=== PATIENT | male | born 1935 | race Caucasian/White ===

== ENCOUNTER 2016-06-24 13:19 | Inpatient (IN) | payer MEDICARE, OTHER ==
--- NOTE | ~2016-06-24 | OP ---
Record Of Operation [facility] [address] [place]. [address] NAME: ELVIS CONNOLLY : 36 STATUS : ADM IN PAT#: [id number] AGE: 80 ADM/REG DATE : 06/24/16 MR#: [id number] REPORT SERV DATE: 06/28/16 DICTATED BY: YEIMI GUZMAN DATE: 06/28/16 REPORT STATUS : Draft TRANSCRIBED BY: MODL DATE: 06/28/16 DATE OF PROCEDURE: 06/26/2016 PREOPERATIVE DIAGNOSIS: Displaced right femoral neck fracture. POSTOPERATIVE DIAGNOSIS: Displaced right femoral neck fracture. PROCEDURE: Uncemented total hip arthroplasty, Tri-Lock. SIDE: Right. MOUNTER SAXOPHONES: ANESTHESIA: See chart. SIZE: See chart ESTIMATED BLOOD LOSS: About 100 mL. INDICATIONS FOR SURGERY: PROCEDURE IN DETAIL: The patient was taken to the operating room and placed supine on the table without incident. Anesthetic was induced per the anesthesiologist. A Bledsoe catheter was placed by the nurse in the standard sterile technique. The correct side for the procedure was identified by preoperative markings and matched with the consent form. All personnel in the room were in agreement regarding the procedure, patient, and side. The patient was then carefully positioned and carefully padded and prepped and draped in the normal sterile fashion. The patient received prophylactic preoperative antibiotics at the appropriate time. The preoperative x-ray was brought up on the monitor. Again, this was reviewed with the staff in the room. According with the preoperative plan, and angled, an anterolateral incision was made centered over the trochanter extending from proximal posterior to distal anterior. Electrocautery was used to maintain meticulous hemostasis. The IT band was split in line with its fibers. A Charnley retractor was placed over saline moistened laps. A standard anterolateral approach to the hip was carried out dissecting in line with the vastus medialis fibers lifting the inferior 20% of the vastus medialis, proximally the interior 20% of the gluteus medius and gluteus minimus tendons off the anterior capsule. Periosteal elevator was used to elevate soft tissue gently directly off the proximal anterior femoral bone. Appropriate retractors were carefully placed. Complete anterior capsulectomy was performed. The hip was then carefully dislocated with a combination of traction maneuver by the kindergarten assistant and scooping the ball out of the socket with a Hohmann. A femoral neck osteotomy was marked according to what had been preoperatively planned with a broach as a template. The distance for the femoral neck osteotomy was measured with a ruler. A femoral neck osteotomy was made with an oscillating saw under appropriate retraction. Meticulous hemostasis was again obtained. The leg was then brought up out of the anterior bag and Record Of Operation [facility] [address] [place]. [address] NAME: ELVIS CONNOLLY : 36 STATUS : ADM IN PAT#: [id number] AGE: 80 ADM/REG DATE : 06/24/16 MR#: [id number] REPORT SERV DATE: 06/28/16 DICTATED BY: YEIMI GUZMAN DATE: 06/28/16 REPORT STATUS : Draft TRANSCRIBED BY: DANIEL DATE: 06/28/16 positioned with the lower extremity in external rotation and slight flexion. Acetabular retractors were placed carefully palpating to be sure that they were directly on the bone. The acetabular labrum was excised with electrocautery and rongeur. Pulvinar fat was removed with a large curette and rongeur and again meticulous hemostasis was obtained. Sequential reamers were used in the acetabulum to 1 mm. less than the final size which was chosen. This was felt to give excellent interference fit. The acetabular fossa was then copiously irrigated with pulsatile lavage and actual acetabular component was placed and impacted and checked to make sure it was down snug. The overall alignment was checked. The acetabular director of first impressions was then removed. Screws were placed in the standard fashion. A drill, depth gauge and self tapping screw placement taking care not to plunge as the drill holes were carefully placed. A trial liner was then placed and attention directed back to the proximal femur. The leg was placed back into the anterior bag. The proximal femur was prepared using a box chisel following by a T-handled reamer to determine the intramedullary alignment. This was followed by sequential broaches up to the final broach. Once it was seated in the appropriate position, a Calcar reamer was used to plane the proximal femur. Trial reduction was then done with a trial prosthetic ball and neck. A straight edge was used to compare the tip of the trochanter to center of the ball relationship to what had been noted on the preoperative x-ray. Careful reduction was then done of the total hip. Palpation was done to ascertain and compare leg lengths by palpating the nonoperative leg and also by checking soft tissue tension. The stability of the hip was checked in full extension with full external rotation and in full flexion with adduction, flexion and internal rotation. The hip was then redislocated with a bone hook. The femoral trial and femoral broach were removed. The acetabulum was then prepared under appropriate retraction by removing the trial liner. A central hole eliminator was placed and tightened. The shell was irrigated out. The actual insert was placed and impacted and then checked to be sure it was down snug with a joker. The leg was again positioned in the bag. The proximal femur exposed, irrigated and the actual thermal prosthesis was taken from the sales representative wire rope and impacted. Once it was down, the trunnion was cleansed with a wet and dry lap and the prosthetic thermal head was placed and impacted and checked to be sure it was down snug. The acetabulum was irrigated and reduction was obtained. Again, we checked soft tissue tension, leg length and stability as described above. The hip was closed in a layered fashion with a 5 mm. Mersilene tape placed through a single drill hole in the proximal anterior/superior trochanter reattaching the gluteus medius and minimus fibers. The vastus lateralis, gluteus medius, and gluteus minimus were then closed in a sleeve. Drain was placed between the vastus and the IT band exiting distally anteriorly. The IT band was closed. Subcutaneous closure and skin closure were then obtained. A sterile dressing was applied. The patient was carefully positioned into a supine position and then awakened. The patient was then carefully transferred to the stretcher to be returned to the postoperative care unit without incident. COMPLICATION: None. SPECIMENS: Right femoral head. Record Of Operation [place] [id number] [facility] [place]. [address] NAME: ELVIS CONNOLLY : 37 STATUS : ADM IN [facility]#: [id number] AGE: 80 ADM/REG DATE : 06/24/16 MR#: [id number] REPORT SERV DATE: 06/28/16 DICTATED BY: YEIMI GUZMAN DATE: 06/28/16 REPORT STATUS : Draft TRANSCRIBED BY: MODFernando DATE: 06/28/16 WTB/DANIEL Rachel Guzman M.D. / [id number] CC: Surekha Abrams M.D.
--- NOTE | ~2016-06-24 | OP ---
Record Of Operation [facility] [address] [place]. [address] NAME: ELVIS CONNOLLY : 37 STATUS : ADM IN PAT#: [id number] AGE: 80 ADM/REG DATE : 06/24/16 MR#: [id number] REPORT SERV DATE: 06/26/16 DICTATED BY: DONNIE MICHEL DATE: 06/26/16 REPORT STATUS : Draft TRANSCRIBED BY: DANIEL DATE: 06/26/16 DATE OF PROCEDURE: 06/26/2016 PREOPERATIVE DIAGNOSIS: End-stage renal disease. POSTOPERATIVE DIAGNOSIS: End-stage renal disease. PROCEDURE: Right IJ PermCath. LOTTERY MANAGER: None. ANESTHESIA: MAC plus local. INDICATION: The patient is a 80-year-old with chronic kidney disease, who just came in with a hip fracture. He needs dialysis as his renal function has worsened. Thus, he was consented for PermCath placement. DESCRIPTION OF PROCEDURE: After informed consent was obtained, the patient was taken to the operating room and placed in the supine position on the operating table. Monitored anesthesia was administered. The patient's right neck and chest were prepped and draped in the usual sterile fashion. Ultrasound-guided access was obtained of the right internal jugular vein. The ultrasound image was documented on the chart. I passed a wire centrally. I made a small skin incision along the right neck and chest. I tunneled a 19-cm curved HemoSplit catheter from the right chest to the right neck. I inserted a peel-away sheath under fluoroscopy over the aforementioned wire. I inserted the catheter into the peel-away sheath under fluoroscopy and peeled away the sheath. I confirmed that the catheter was not kinked and that it aspirated and flushed well. The right neck wound was closed. The catheter was sutured in place. It was packed with saline. A sterile dressing was applied. The patient tolerated the procedure well without any intraprocedural complications noted. VIC/DANIEL Donnie Michel M.D. / [id number] CC: Surekha Abrams M.D.
--- NOTE | ~2016-06-24 | HP ---
History And Physical [address] [place]. [address] NAME: ELVIS CONNOLLY : 36 STATUS : ADM IN PAT#: [id number] AGE: 80 ADM/REG DATE : 06/24/16 MR#: [id number] REPORT SERV DATE: 06/26/16 DICTATED BY: YEIMI GUZMAN DATE: 06/25/16 REPORT STATUS : Draft TRANSCRIBED BY: MODL DATE: 06/25/16 DATE OF ADMISSION: 06/24/2016 CHIEF COMPLAINT: Right hip pain. HISTORY: A 80-year-old male, tripped over water hose yesterday, fell and broke his hip. He denies pain or injury elsewhere. ALLERGIES: NONE. MEDICATIONS: See chart. PAST MEDICAL HISTORY: Hypertension, chronic renal failure, sleep apnea, and occasional diarrhea. PAST SURGICAL HISTORY: Bilateral cataracts, colonoscopies, tonsils and adenoids, repair of aortic aneurysm in 2012, several procedures to "stop a leak." Right nephrectomy in 2013. SOCIAL HISTORY: . No cigarettes, alcohol, or illicit drug use. FAMILY HISTORY: No anesthetic complications. REVIEW OF SYSTEMS: Chronic kidney disease/renal insufficiency. PHYSICAL EXAMINATION: GENERAL: He is alert and oriented x3, in no apparent distress. HEENT: Atraumatic and normocephalic. NECK: Supple. CHEST: Symmetric and nontender. LUNGS: Per Medicine evaluation. CV: Regular. ABDOMEN: Soft. No mass. EXTREMITIES: Right lower extremity is short and externally rotated. SKIN: Intact. Compartments are supple. Thready pulses. NEURO: Sensorimotor without deficit. Moderate edema. X-RAYS: Repeat x-rays done here with intertrochanteric line intact with a displaced femoral neck fracture. ASSESSMENT: Displaced right femoral neck fracture. PLAN: Right total hip arthroplasty. Risks, benefits, etc. explained. The patient wishes to proceed. History And Physical [address] [place]. [address] NAME: ELVIS CONNOLLY : 36 STATUS : ADM IN PAT#: [id number] AGE: 80 ADM/REG DATE : 06/24/16 MR#: [id number] REPORT SERV DATE: 06/26/16 DICTATED BY: YEIMI GUZMAN DATE: 06/25/16 REPORT STATUS : Draft TRANSCRIBED BY: MODL DATE: 06/25/16 WTB/MODL Rachel Guzman M.D. / [id number] CC: Surekha Willard M.D.
--- NOTE | ~2016-06-24 | HP ---
History And Physical [address] [place]. [address] NAME: ELVIS CONNOLLY : 37 STATUS : ADM IN [facility]#: [id number] AGE: 80 ADM/REG DATE : 06/24/16 MR#: [id number] REPORT SERV DATE: 06/24/16 DICTATED BY: ARACELI DUMONT DATE: 06/24/16 REPORT STATUS : Draft TRANSCRIBED BY: MODL DATE: 06/24/16 DATE OF ADMISSION: 06/24/2016 CHIEF COMPLAINT: Hip fracture, on the right side. HISTORY OF PRESENT ILLNESS: The patient is a 80-year-old male. He has a past medical history significant for one chronic kidney disease. 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 He also has history of atrial fib, currently on Cardizem and digoxin. He presents today with right hip fracture after a nonsyncopal fall. The patient was outside, filling his bird bath, he tripped over hose, states he seemed to fall on his left side, however the right hip was fractured. He had no loss of consciousness. No head trauma. He is currently denying any other symptoms except pain in his hip. On his past medical history, he had an aneurysm repair and subsequently had loss of his right kidney. He also has had decreasing function in his left. He normally follows with Dr. Arnold. His current creatinine is 4.5 with a potassium of 6.2. He is otherwise without complaints today. PAST MEDICAL HISTORY: As covered above. PAST SURGICAL HISTORY: He had aneurysm repair and he has had multiple kidney stones in the past. CURRENT MEDICATIONS: Coumadin, vitamin B12, vitamin C, digoxin 0.25, Cartia XT 180, Protonix 40, melatonin. ALLERGIES: NO KNOWN DRUG ALLERGIES. FAMILY HISTORY: Mother had a CVA. Father in his 80s from old age. SOCIAL HISTORY: Nondrinker, nonsmoker. REVIEW OF SYSTEMS: HEENT: No headache, dizziness. No chest pain, palpitations, shortness of breath, nausea, vomiting, dysuria. His musculoskeletal exam is positive for the right hip pain. Otherwise, 10-point review of systems is negative. PHYSICAL EXAMINATION: VITAL SIGNS: Currently, pending. GENERAL: He is awake, alert, oriented, no acute distress. HEENT: Normocephalic, atraumatic. Sclerae nonicteric. NECK: Supple. HEART: Irregular rate controlled. LUNGS: Clear to auscultation anteriorly. ABDOMEN: Soft, nontender, nondistended. EXTREMITIES: 1+ edema. LAB WORK: As forwarded from [facility], sodium 138, potassium 6.2, chloride 105, CO2 16, History And Physical [address] [place]. [address] NAME: ELVIS CONNOLLY : 36 STATUS : ADM IN [facility]#: [id number] AGE: 80 ADM/REG DATE : 06/24/16 MR#: [id number] REPORT SERV DATE: 06/24/16 DICTATED BY: ARACELI DUMONT DATE: 06/24/16 REPORT STATUS : Draft TRANSCRIBED BY: MODL DATE: 06/24/16 BUN and creatinine of 52 and 4.5 with a glucose of 112. White count 6.9, H and H 10.9 and 32.3, platelets 146. Troponin is less than 0.03. INR is 2.0. Last creatinine available to me here in 12/2015 of 3.11. Right hip shows a distal femoral neck fracture. EKG shows atrial fibrillation without peaked T-waves or ST-segment changes. ASSESSMENT: He has right hip fracture post nonsyncopal fall. A 80-year-old male with chronic kidney disease and hyperkalemia today. PLAN: 1. The patient has been admitted. 2. We will consult orthopedics. 3. We will consult Nephrology. 4. He received calcium and Kayexalate prior to transfer. We will repeat kidney numbers here. 5. Reverse Coumadin. 6. Proceed with orthopedic repair when his INR is corrected and his renal function is maximized and his potassium is lower. TLF/MODL Araceli Dumont M.D. / [id number] CC: Baron Jameson M.D. Hang Gautam M.D.
--- NOTE | ~2016-06-24 | DS ---
Discharge Summary [facility] [address] [place]. [address] NAME: ELVIS CONNOLLY : 36 STATUS : DIS IN PAT#: [id number] AGE: 80 ADM/REG DATE : 06/24/16 MR#: [id number] REPORT SERV DATE: 07/04/16 DICTATED BY: TC LEE DATE: 07/03/16 REPORT STATUS : Draft TRANSCRIBED BY: MODL DATE: 07/03/16 ADMISSION DATE: 06/24/2016 DISCHARGE DATE: 07/03/2016 INDICATION FOR ADMISSION: Right hip pain with hip fracture. DISCHARGE DIAGNOSES: 1. Right hip fracture following fall, status post right total hip arthroplasty on 06/26/2016. 2. Chronic kidney disease, 5, progressing to end-stage renal disease. The patient initiated on dialysis on 06/28/2016 by right IJ PermCath. 3. Left radiocephalic AV fistula created on 07/02/[address] Michel. 4. Solitary kidney. 5. Chronic atrial fibrillation. 6. Anemia. 7. History of obstructive uropathy. 8. Hypertension. 9. Nephrolithiasis. 10.History of internal iliac aneurysm repair. 11.Obstructive sleep apnea. 12.History of DVT and pulmonary embolus. 13.Hyperlipidemia. 14.Corneal transplant remotely. 15.Chronic systolic congestive heart failure, ejection fraction 46%. 16.Chronic Coumadin therapy and inferior vena cava, Jem filter for history of DVT and pulmonary embolus. HOSPITAL COURSE: Mr. Connolly is a 80-year-old male, who is followed by Dr. Arnold for stage 4 to 5 CKD and was admitted for right hip pain. He apparently fell after tripping over a hose in his yard. He required right total hip arthroplasty on 06/26/2016. His kidney failure had worsened to the point that he was at end-stage disease and his creatinine had risen to 6.18. He was initiated on dialysis on 06/28/2016 by right IJ PermCath. Subsequently on 07/02/2016, he underwent a left forearm AV fistula. He was scheduled for rehab following stabilization and was felt stable for release on 07/03/2016. At the time of release, his creatinine was 6.2, potassium 4.5, hemoglobin was 9.7. He will be transitioned to outpatient dialysis Saturday, , Saturday at [facility]. DISCHARGE MEDICATIONS: Zebeta 5 mg at bedtime; Maximum D3 10,000 units p.o. Saturday, Saturday, Saturday; Valium 2 mg at bedtime; calcium carbonate 1000 mg p.o. with meals; docusate sodium 100 mg twice daily; Lopid 600 mg twice daily; Pravachol 20 mg at bedtime; prednisone ophthalmic solution one drop left eye twice daily; sodium bicarbonate 650 mg two tablets p.o. twice daily; torsemide 100 mg one-half tablet daily; Coumadin 2.5 mg Saturday, Saturday, Saturday; Coumadin 5 mg Saturday, Saturday, , Saturday; acetaminophen 650 mg q.4h p.r.n.; Dulcolax 15 mg p.o. p.r.n. constipation; and hydrocodone 7.5/325 one q.4h p.r.n. Discharge Summary [address] [address] NAME: ELVIS CONNOLLY : 36 STATUS : DIS IN PAT#: [id number] AGE: 80 ADM/REG DATE : 06/24/16 MR#: [id number] REPORT SERV DATE: 07/04/16 DICTATED BY: TC LEE DATE: 07/03/16 REPORT STATUS : Draft TRANSCRIBED BY: DANIEL DATE: 07/03/16 ACTIVITY: Activity will be progressed at [facility] where he is transferring. DIET: Will be renal diet, 1500 mL fluid restriction per day. FOLLOWUP: On dialysis at [facility] Saturday, , Saturday. AUGIE/DANIEL Tc Lee M.D. / [id number] CC: Surekha Abrams M.D.
--- NOTE | ~2016-06-24 | CN ---
Consultation Report [facility] [address] [place]. [address] NAME: ELVIS CONNOLLY : 36 STATUS : ADM IN PAT#: [id number] AGE: 80 ADM/REG DATE : 06/24/16 MR#: [id number] REPORT SERV DATE: 06/26/16 DICTATED BY: DONNIE MICHEL DATE: 06/26/16 REPORT STATUS : Draft TRANSCRIBED BY: MODFernando DATE: 06/26/16 DATE OF CONSULTATION: 06/25/2016 REASON FOR CONSULTATION: Evaluation for dialysis access. BRIEF HISTORY: The patient is a 80-year-old gentleman who is well known to me, who had an internal iliac artery aneurysm fixed with an endovascular technique. This was for a ruptured aneurysm. Unfortunately, he had an endoleak that was not amendable to endovascular treatment. Dr. Perez and I took him to the operating room for an open repair and encountered significant scarring and bleeding that necessitated over-sewing of his aneurysm. In this process, he developed hydronephrosis postoperatively. This was thought to be related to scarring or ligation of his ureter. He ultimately lost his kidney and his renal function has worsened. Now, he is in the hospital for a hip fracture and needs dialysis access. I was consulted for evaluation and treatment. PAST MEDICAL HISTORY: CKD, stage 4; chronic atrial fibrillation; hypertension; chronic anemia; hyperlipidemia; hyperkalemia; DVT; internal iliac artery aneurysm; obstructive sleep apnea; and DVT with PE. SURGICAL HISTORY: Includes multiple interventions for his aneurysm. He has also had a corneal transplant. SOCIAL HISTORY: He does not smoke, drink, or use any drugs. He is and his is actively involved in his care. FAMILY HISTORY: Significant for cancer and stroke. ALLERGIES: NONE. MEDICATIONS: Documented on the chart and were reviewed. REVIEW OF SYSTEMS: A complete review of systems was performed and is negative with the exception of the aforementioned findings. PHYSICAL EXAMINATION: VITAL SIGNS: Documented on the chart and were reviewed. GENERAL: The patient is awake, alert, and oriented. No apparent distress. HEAD AND NECK: Benign without any carotid bruits. HEART: Irregular rate and rhythm. LUNGS: Clear. ABDOMEN: Soft, nontender, nondistended with a nonaneurysmal aorta. EXTREMITIES: Examination of the upper extremities reveals a normal complement of pulses without any significant edema or ischemic ulcerations. He has palpable femoral, popliteal, and pedal pulses. He has no significant edema or ischemic ulcerations. Consultation Report [place] [id number] [place]. [address] NAME: ELVIS CONNOLLY : 37 STATUS : ADM IN PAT#: [id number] AGE: 80 ADM/REG DATE : 06/24/16 MR#: [id number] REPORT SERV DATE: 06/26/16 DICTATED BY: DONNIE MICHEL DATE: 06/26/16 REPORT STATUS : Draft TRANSCRIBED BY: DANIEL DATE: 06/26/16 NEUROLOGIC: Grossly nonfocal. MUSCULOSKELETAL: Significant for his right hip fracture and the tenderness around this. LABORATORY DATA: His laboratory investigations are consistent with his kidney disease. ASSESSMENT AND PLAN: It looks like this gentleman has chronic kidney disease, 4, but it is progressing to end-stage renal disease. I talked to him about the risks, benefits, and alternatives of catheter-based dialysis, arteriovenous fistulas, and arteriovenous grafts. I will obtain vein mapping to see what options he has for access. He says that his veins are pretty good and that he is right-arm dominant. We will probably put something in his left upper extremity. I will ask that they stop placing IVs or drawing blood from his left upper extremity for that reason. He will need a PermCath placement in the morning for dialysis prior to his hip surgery. We can talk about his fistula or graft afterwards. VIC/DANIEL Donnie Michel M.D. / [id number] CC: Surekha Abrams M.D.
--- NOTE | ~2016-06-24 | OP ---
Record Of Operation [facility] [address] [place]. [address] NAME: ELVIS CONNOLLY : 37 STATUS : ADM IN PAT#: [id number] AGE: 80 ADM/REG DATE : 06/24/16 MR#: [id number] REPORT SERV DATE: 07/02/16 DICTATED BY: DONNIE MICHEL DATE: 07/02/16 REPORT STATUS : Draft TRANSCRIBED BY: MODFernando DATE: 07/02/16 DATE OF PROCEDURE: 07/02/2016 PREOPERATIVE DIAGNOSIS: End-stage renal disease. POSTOPERATIVE DIAGNOSIS: End-stage renal disease PROCEDURE: Left radiocephalic fistula. SURGEON: Donnie Michel M.D. SLASHER TENDER HELPER: [employer] [place]. ANESTHESIA: Block. INDICATIONS: The patient is a gentleman, with a history of chronic kidney disease, stage IV, who came in with a hip fracture. His renal function has worsened, and I placed a PermCath for dialysis. Now, he needs long-term access. DESCRIPTION OF PROCEDURE: After informed consent was obtained, the patient was taken to the operating room, and placed in the supine position on the operating table. A block had previously been administered. The patient's left upper extremity was prepped and draped in usual sterile fashion. I began with an ultrasound examination of the left upper extremity veins and found that the cephalic vein in the forearm looked reasonable. There was a point where the cephalic vein had thrombosed from a previous IV. We made a longitudinal skin incision at this region. Cautery was used to deepen the incision. I dissected out the cephalic vein at the confluence point. This was near the area thrombosis. I dissected out the radial artery. I systemically heparinized. I ligated and divided the cephalic vein and its branch. I spatulated the end of the cephalic vein at the confluence point. I removed the thrombus. I inspected the vein and it looked relatively healthy. I flushed it and it dilated and flushed well. I controlled the radial artery after systemic heparinization. I created a longitudinal arteriotomy onto which I sewed the end of the cephalic vein. I flushed of air and debris before tying down the sutures. There was a good thrill within the fistula. I freed up the soft tissue around the fistula, so that it would rest in a proper orientation. I then washed out the wound, achieved hemostasis, and closed the wound in layers. Of note, the cephalic vein was about 3 mm in diameter. The radial artery was also 3 mm in diameter. VIC/DANIEL Donnie Michel M.D. / [id number] Record Of [address] [address] NAME: ELVIS CONNOLLY : 37 STATUS : ADM IN [facility] WITH [facility]#: [id number] AGE: 80 ADM/REG DATE : 06/24/16 MR#: [id number] REPORT SERV DATE: 07/02/16 DICTATED BY: DONNIE MICHEL DATE: 07/02/16 REPORT STATUS : Draft TRANSCRIBED BY: DANIEL DATE: 07/02/16 CC: Surekha Abrams M.D. Nathan Chamberlain, M.D.
--- NOTE | ~2016-06-24 | DS ---
Discharge Summary [facility] [address] [place]. [address] NAME: ELVIS CONNOLLY : 37 STATUS : ADM IN [facility]#: [id number] AGE: 80 ADM/REG DATE : 06/24/16 MR#: [id number] REPORT SERV DATE: 07/03/16 DICTATED BY: MIGUEL HOLLINGSWORTH DATE: 07/02/16 REPORT STATUS : Draft TRANSCRIBED BY: MODL DATE: 07/02/16 ADMISSION DATE: 06/24/2016 DISCHARGE DATE: 07/02/2016 PRINCIPAL DIAGNOSIS: Right-sided hip fracture. SECONDARY DIAGNOSES: 1. End-stage renal disease. 2. Atrial fibrillation. 3. Hypertension. 4. Sleep apnea. 5. Hyperlipidemia. HISTORY OF PRESENT ILLNESS: Please see Dr. Grajeda's H and P on 06/24/2016. HOSPITAL COURSE: Admitted with hip fracture, advanced renal disease was pre-noted and it was felt that it was time for dialysis prior to anesthesia, this was initiated with a 3-way Port A-Cath and the surgery went on without complication. He continued dialysis and physical therapy with expectation to go to [facility] by 06/29/2016; however, [facility] want to go ahead and place the permanent graft in and that was scheduled on 07/02/2016, it also went on without difficulty. Due to his dialysis schedule he did not discharge again on 07/02/2016, but arrangements were made on 07/03/2016 at [facility]. I discussed with Nephrology regarding discharge planning, they agreed to presume care and he will no longer be on the hospitalist service. Greater than 30 minutes were spent on the care of this patient, discharge planning, and discharge day. EMILY/DANIEL Miguel Hollingsworth M.D. / [id number] CC: Surekha Abrams M.D. Sachin V Phade, M.D. W. Timothy Ballard, M.D. [facility]
--- NOTE | ~2016-06-24 | CN ---
Consultation Report [facility] [address] [place]. [address] NAME: ELVIS CONNOLLY : 37 STATUS : ADM IN PAT#: [id number] AGE: 80 ADM/REG DATE : 06/24/16 MR#: [id number] REPORT SERV DATE: 06/25/16 DICTATED BY: YAW STACY DATE: 06/24/16 REPORT STATUS : Draft TRANSCRIBED BY: MODL DATE: 06/24/16 NEPHROLOGY CONSULTATION DATE OF CONSULTATION: 06/24/2016 Thank you for this consult. Chart reviewed. Patient examined. REASON FOR CONSULTATION: Acute kidney injury on chronic kidney disease stage 4. HISTORY OF PRESENT ILLNESS: Mr. Connolly is a 80-year-old male with chronic kidney disease stage 4, with severe nephrotic range proteinuria followed by Dr. Arnold in our office. He has a solitary kidney. Today, he was going out to work on his bird feeder when he tripped over a hose, he landed on the left side of his body but suffered a right femoral neck fracture. The patient said he was awake the whole time, had no loss of consciousness, had no shortness of breath or chest pain, no head trauma. He says he has been doing fine, taking his medicines, and has a good quality of life. He has recently had a corneal transplant, so his vision has greatly improved and he is back to driving again. He went to the [facility] Emergency Room after calling 911 where they diagnosed his femoral neck fracture. There, his potassium was elevated at 6.2. He was shipped to [facility] where we have been asked to see him here. His creatinine is 4.4, with a potassium of 5.5. He says he is making urine fine without dysuria or gross hematuria. He has had previous obstructive uropathy and a solitary kidney due to nephrolithiasis. I reviewed the records from [facility] with Dr. Arnold. His creatinine was 3.9 in April 2016. PAST MEDICAL HISTORY: 1. Chronic atrial fibrillation, on Coumadin. 2. Chronic kidney disease stage 4. 3. Previous right nephrectomy. 4. Hypertension. 5. Anemia of chronic kidney disease. 6. Nephrotic range proteinuria. 7. Chronic edema. 8. Obstructive uropathy with nephrolithiasis that required a ureteral stent. 9. Hyperlipidemia. 10.Recurrent hyperkalemia. 11.Corneal transplant. 12.Previous deep venous thrombosis. 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 14.Obstructive sleep apnea. 15.Metabolic acidosis. 16.Previous pulmonary embolism. SOCIAL HISTORY: Does not smoke or drink. FAMILY HISTORY: Brother had cancer. Mother had a stroke. Consultation Report [facility] [address]. [address] NAME: ELVIS CONNOLLY : 37 STATUS : ADM IN [facility]#: [id number] AGE: 80 ADM/REG DATE : 06/24/16 MR#: [id number] REPORT SERV DATE: 06/25/16 DICTATED BY: YAW STACY DATE: 06/24/16 REPORT STATUS : Draft TRANSCRIBED BY: DANIEL DATE: 06/24/16 ALLERGIES: NO KNOWN DRUG ALLERGIES. HOME MEDICATIONS: Include amlodipine 5 mg a day; vitamin C 500 mg twice a day; bisoprolol 5 mg at bedtime; vitamin D 08557 units on Saturday, Saturday, and Saturday; vitamin B12, 1000 mcg p.o. daily; Valium 2 mg at bedtime; digoxin 0.125 mg 3 times a week; iron polysaccharide 200 mg a day; gemfibrozil 600 mg twice a day; losartan 50 mg a day; pravastatin 20 mg at bedtime; prednisolone eye drops, one drop twice a day in the left eye; sodium bicarbonate 650 mg two tablets twice a day; spironolactone 50 mg a day; torsemide 50 mg a day; and warfarin 2.5 mg on Saturday, Saturday, Saturday, and 5 mg on Saturday, , Saturday, Saturday. REVIEW OF SYSTEMS: All systems reviewed and are negative except what is mentioned in the history of present illness. PHYSICAL EXAMINATION: VITAL SIGNS: Currently upon examination, afebrile, blood pressure 145/73, pulse 64, respirations 18. GENERAL: Chronically ill, in no acute distress. HEENT: Eyes: Pupils react bilaterally. No conjunctivitis. Oropharynx: Mucous membranes are moist. Good dentition. No lesions. NECK: Supple. No thyromegaly or mass. Trachea is midline. LYMPHADENOPATHY: No cervical, supraclavicular, or axillary lymphadenopathy. LUNGS: Clear to auscultation. No tachypnea. CARDIOVASCULAR: Atrial fibrillation. No rub. There is no significant JVD. GASTROINTESTINAL: Positive bowel sounds. Soft, nontender, nondistended. No hepatosplenomegaly. SKIN: There is good skin turgor. No rash. PSYCHIATRIC: Alert and oriented x3. Speech is clear. Affect is normal. NEUROLOGIC: Cranial nerves 2 through 12 intact. Sensation is intact. LABORATORY DATA: Here at [facility], sodium 145, potassium 5.5, chloride 115, bicarbonate 17, BUN 51, creatinine 4.4, glucose 104, calcium 8.9, magnesium 2.6, phosphorus 3.4, digoxin 0.6, BNP 643. Hemoglobin 11.5, hematocrit 34, INR 2.1. EKG reviewed by me shows atrial fibrillation. There are no changes of hyperkalemia per my interpretation. X-ray of the hip done at [facility] shows a right femoral neck fracture per the report by the radiologist. DISCUSSION: I had a long talk with the patient and his at bedside, explained the high risk of worsening kidney disease with repair of his right hip fracture. They agree to Vas Cath hemodialysis if needed. I think he will need a Vas Cath placed before going to the Consultation Report [address] [place]. [address] NAME: ELVIS CONNOLLY : 37 STATUS : ADM IN [facility]#: [id number] AGE: 80 ADM/REG DATE : 06/24/16 MR#: [id number] REPORT SERV DATE: 06/25/16 DICTATED BY: YAW STACY DATE: 06/24/16 REPORT STATUS : Draft TRANSCRIBED BY: MODL DATE: 06/24/16 operating room if surgery is indeed needed to fix this, which I suspect that will be the case. Orthopedic Surgery has been consulted. IMPRESSION: 1. Acute kidney injury. 2. Hyperkalemia. 3. Metabolic acidosis. 4. Nephrotic range proteinuria. 5. Hypertension. 6. Chronic atrial fibrillation, on Coumadin. 7. New right hip fracture after fall today. 8. Chronic kidney disease stage 4, with solitary kidney. PLAN AND RECOMMENDATION: 1. Avoid nephrotoxins. 2. Stop the losartan and spironolactone with hyperkalemia. 3. Check urinalysis. 4. Check renal ultrasound. 5. Give IV fluids with sodium bicarbonate. 6. Give IV Lasix to excrete the potassium. The potassium is down to 5.5. There are no EKG changes of hyperkalemia. 7. If surgery is planned to fix the right hip, then will need Vas Cath as he is high risk for worsening kidney disease and need for dialysis with surgery to fix this right hip. He and his agree and voice understanding. All questions were answered for them. TEAGAN/DANIEL Yaw Stacy M.D. / [id number] CC: Surekha Willard M.D. Rohit Gupta, M.D.
[~2016-06-24 13:19] MED LIST: ASAB PO; ATEN25 PO; C5 PO; COZ50 PO; CYANO1000T PO; DIGITEK0.125 MG PO; LOPID6 PO; LOVENOX40 SC; MULTIVITAMI1 PO; NORV5 PO; PRAVAC PO; V2 PO; VIT D 3 PO
[2016-06-24] MEDS ORDERED: COZ50 PO (16:30)
[2016-06-24] MEDS ORDERED: DEMA100 PO (16:30)
[2016-06-24] MEDS ORDERED: V2 PO (16:31)
[2016-06-24] MEDS ORDERED: CYANO1000T PO (16:31)
[2016-06-24] MEDS ORDERED: LOPID6 PO (16:31)
[2016-06-24] MEDS ORDERED: SODBICAR10 PO (16:31)
[2016-06-24] MEDS ORDERED: PREDFORTE OPH (16:32)
[2016-06-24] MEDS ORDERED: ZEBETA5 PO (16:32)
[2016-06-24] MEDS ORDERED: EZFE 200200 MG PO (16:32)
[2016-06-24] MEDS ORDERED: LAN125 PO (16:33)
[2016-06-24] MEDS ORDERED: MAXIMUM D3 PO (16:33)
[2016-06-24] MEDS ORDERED: SPIRO50 PO (16:33)
[2016-06-24] MEDS ORDERED: PRAVAC PO (16:34)
[2016-06-24] MEDS ORDERED: NORV5 PO (16:34)
[2016-06-24] MEDS ORDERED: C25 PO (16:36)
[2016-06-24] MEDS ORDERED: C5 PO (16:36)
[2016-06-24] MEDS ORDERED: VITC500 PO (16:38)
[2016-06-24 17:08] LABS: CALCIUM, SERUM 8.9 MG/DL (8.5-10.4); CHLORIDE, SERUM 115 MMOL/L (96-112); CO2 (CARBON DIOXIDE) 17 MMOL/L (24-34); GLUCOSE, SERUM 104 MG/DL (60-99); PHOSPHORUS, SERUM 3.4 MG/DL (2.5-4.5); SODIUM, SERUM 145 MMOL/L (135-148)
[2016-06-24 17:10] LABS: BUN (BLOOD UREA NITROGEN) 51 MG/DL (6-23); CREATININE 4.45 MG/DL (0.70-1.30); DIGOXIN 0.6 NG/ML (0.8-2.0); GFR AFRICAN AMERICAN 14 ML/MIN (>=60); GFR NON AFRICAN AMERICAN 12 ML/MIN (>=60); POTASSIUM, SERUM 5.5 MMOL/L (3.5-5.3)
[2016-06-24 17:29] LABS: INTERNATIONAL NORMAL RATI 2.1 UNITS (-)
[2016-06-24 17:33] LABS: PROTIME (NOT ORD) 23.3 SEC (12.0-14.5)
[2016-06-24 21:02] LABS: ASCORBIC ACID (UR NOT ORDER) 40 (NEG); BILIRUBIN, URINE NEGATIVE (NEG); KETONE, URINE NEGATIVE (NEG); LEUKOCYTE ESTERASE(NOT OR NEG (NEG); WBC (NOT ORDERED) (RFLEX) 1 (0-5)
[2016-06-25 06:19] LABS: BASOPHILS 0.4 %; BASOPHILS ABSOLUTE 0.03 10/3/uL (0.0-0.16); EOSINOPHILS 2.2 %; EOSINOPHILS ABSOLUTE 0.17 10/3/uL (0.0-0.53); HEMATOCRIT 33.1 % (40.0-51.0); HEMOGLOBIN 10.9 g/dL (13.6-17.8); IMMATURE GRANULOCYTES 0.3 %; IMMATURE GRANULOCYTES ABSOLUTE 0.02 10/3/uL (0.0-0.11); LYMPHOCYTES 22.1 %; LYMPHOCYTES ABSOLUTE 1.69 10/3/uL (0.67-4.30); MEAN CORPUS HGB CONC 32.9 g/dL (32.0-36.0); MEAN CORPUSCULAR VOLUME 100.3 fL (80-100); MEAN PLATELET VOLUME 11.2 fL (9.2-13.0); MONOCYTES 13.6 %; MONOCYTES ABSOLUTE 1.04 10/3/uL (0.21-1.20); NEUTROPHILS 61.4 %; NEUTROPHILS ABSOLUTE 4.68 10/3/uL (2.02-8.40); PLATELET COUNT 174 10/3/uL (150-400); RBC DISTRIBUTION WIDTH 14.9 % (12.0-16.0); WHITE BLOOD CELLS 7.6 10/3/uL (4.5-10.5)
[2016-06-25 06:25] LABS: MANUAL DIFF NO %
[2016-06-25 06:32] LABS: ALBUMIN 2.9 G/DL (3.5-5.0); BUN (BLOOD UREA NITROGEN) 50 MG/DL (6-23); CALCIUM, SERUM 8.6 MG/DL (8.5-10.4); CHLORIDE, SERUM 110 MMOL/L (96-112); CO2 (CARBON DIOXIDE) 20 MMOL/L (24-34); CPK 251 U/L (0-200); CREATININE 4.15 MG/DL (0.70-1.30); GFR AFRICAN AMERICAN 15 ML/MIN (>=60); GFR NON AFRICAN AMERICAN 13 ML/MIN (>=60); GLUCOSE, SERUM 84 MG/DL (60-99); PHOSPHORUS, SERUM 4.3 MG/DL (2.5-4.5); POTASSIUM, SERUM 4.8 MMOL/L (3.5-5.3); SODIUM, SERUM 144 MMOL/L (135-148)
[2016-06-25 06:43] LABS: INTERNATIONAL NORMAL RATI 1.8 UNITS (-); PROTIME (NOT ORD) 20.7 SEC (12.0-14.5)
[2016-06-26 04:46] LABS: BASOPHILS 0.3 %; BASOPHILS ABSOLUTE 0.03 10/3/uL (0.0-0.16); EOSINOPHILS 3.6 %; EOSINOPHILS ABSOLUTE 0.31 10/3/uL (0.0-0.53); HEMATOCRIT 34.3 % (40.0-51.0); HEMOGLOBIN 11.4 g/dL (13.6-17.8); IMMATURE GRANULOCYTES 0.1 %; IMMATURE GRANULOCYTES ABSOLUTE 0.01 10/3/uL (0.0-0.11); LYMPHOCYTES 22.4 %; LYMPHOCYTES ABSOLUTE 1.94 10/3/uL (0.67-4.30); MANUAL DIFF NO %; MEAN CORPUS HGB CONC 33.2 g/dL (32.0-36.0); MEAN CORPUSCULAR VOLUME 99.4 fL (80-100); MEAN PLATELET VOLUME 11.2 fL (9.2-13.0); MONOCYTES 10.8 %; MONOCYTES ABSOLUTE 0.93 10/3/uL (0.21-1.20); NEUTROPHILS 62.8 %; NEUTROPHILS ABSOLUTE 5.43 10/3/uL (2.02-8.40); PLATELET COUNT 175 10/3/uL (150-400); RBC DISTRIBUTION WIDTH 14.6 % (12.0-16.0); RED CELL COUNT 3.45 10/6/uL (4.7-6.1); WHITE BLOOD CELLS 8.7 10/3/uL (4.5-10.5)
[2016-06-26 04:49] LABS: INTERNATIONAL NORMAL RATI 1.4 UNITS (-)
[2016-06-26 04:56] LABS: ALBUMIN 2.9 G/DL (3.5-5.0); BUN (BLOOD UREA NITROGEN) 51 MG/DL (6-23); CALCIUM, SERUM 8.4 MG/DL (8.5-10.4); CHLORIDE, SERUM 106 MMOL/L (96-112); CO2 (CARBON DIOXIDE) 23 MMOL/L (24-34); CREATININE 4.11 MG/DL (0.70-1.30); GFR AFRICAN AMERICAN 15 ML/MIN (>=60); GFR NON AFRICAN AMERICAN 13 ML/MIN (>=60); GLUCOSE, SERUM 79 MG/DL (60-99); PHOSPHORUS, SERUM 3.9 MG/DL (2.5-4.5); POTASSIUM, SERUM 4.2 MMOL/L (3.5-5.3); SODIUM, SERUM 143 MMOL/L (135-148)
[2016-06-26 13:43] LABS: HEPATITIS B SURFACE ANTIGEN NON-REACTIVE (NON-REACT)
[2016-06-26 14:09] LABS: HEPATITIS C ANTIBODY NON-REACTIVE (NON-REACT)
[2016-06-26 14:10] LABS: HEPATITIS B CORE AB IGM NON-REACTIVE (NON-REAC)
[2016-06-26 14:11] LABS: HIV COMBO NON-REACTIVE (NON REAC)
[2016-06-26 14:12] LABS: HEP A ANTIBODY IGM NON-REACTIVE (NON-REACT)
[2016-06-27 05:44] LABS: BASOPHILS 0.2 %; BASOPHILS ABSOLUTE 0.02 10/3/uL (0.0-0.16); EOSINOPHILS 1.5 %; EOSINOPHILS ABSOLUTE 0.15 10/3/uL (0.0-0.53); HEMATOCRIT 33.9 % (40.0-51.0); HEMOGLOBIN 11.6 g/dL (13.6-17.8); IMMATURE GRANULOCYTES 0.2 %; IMMATURE GRANULOCYTES ABSOLUTE 0.02 10/3/uL (0.0-0.11); LYMPHOCYTES 15.2 %; LYMPHOCYTES ABSOLUTE 1.49 10/3/uL (0.67-4.30); MEAN CORPUS HGB CONC 34.2 g/dL (32.0-36.0); MEAN CORPUSCULAR HEMOGLOB 33.4 pg (26.0-34.0); MEAN CORPUSCULAR VOLUME 97.7 fL (80-100); MEAN PLATELET VOLUME 11.2 fL (9.2-13.0); MONOCYTES 12.9 %; MONOCYTES ABSOLUTE 1.27 10/3/uL (0.21-1.20); NEUTROPHILS ABSOLUTE 6.86 10/3/uL (2.02-8.40); PLATELET COUNT 157 10/3/uL (150-400); RBC DISTRIBUTION WIDTH 14.4 % (12.0-16.0); RED CELL COUNT 3.47 10/6/uL (4.7-6.1); WHITE BLOOD CELLS 9.8 10/3/uL (4.5-10.5)
[2016-06-27 05:48] LABS: MANUAL DIFF NO %
[2016-06-27 05:53] LABS: ALBUMIN 2.7 G/DL (3.5-5.0); BUN (BLOOD UREA NITROGEN) 47 MG/DL (6-23); CHLORIDE, SERUM 104 MMOL/L (96-112); CO2 (CARBON DIOXIDE) 24 MMOL/L (24-34); CREATININE 4.56 MG/DL (0.70-1.30); GFR AFRICAN AMERICAN 13 ML/MIN (>=60); GFR NON AFRICAN AMERICAN 11 ML/MIN (>=60); GLUCOSE, SERUM 91 MG/DL (60-99); PHOSPHORUS, SERUM 7.3 MG/DL (2.5-4.5); POTASSIUM, SERUM 4.8 MMOL/L (3.5-5.3); SODIUM, SERUM 142 MMOL/L (135-148)
[2016-06-27 05:55] LABS: INTERNATIONAL NORMAL RATI 1.5 UNITS (-); PROTIME (NOT ORD) 17.6 SEC (12.0-14.5)
[2016-06-27 06:21] LABS: PLATELET ESTIMATE ADQ (ADEQUATE)
[2016-06-27 06:22] LABS: RBC MORPHOLOGY NORM (NORMAL)
[2016-06-28 05:54] LABS: BASOPHILS 0.1 %; BASOPHILS ABSOLUTE 0.01 10/3/uL (0.0-0.16); EOSINOPHILS 0.1 %; EOSINOPHILS ABSOLUTE 0.01 10/3/uL (0.0-0.53); HEMATOCRIT 31.5 % (40.0-51.0); HEMOGLOBIN 10.7 g/dL (13.6-17.8); IMMATURE GRANULOCYTES 0.2 %; IMMATURE GRANULOCYTES ABSOLUTE 0.02 10/3/uL (0.0-0.11); LYMPHOCYTES ABSOLUTE 1.13 10/3/uL (0.67-4.30); MEAN CORPUSCULAR HEMOGLOB 33.1 pg (26.0-34.0); MEAN CORPUSCULAR VOLUME 97.5 fL (80-100); MEAN PLATELET VOLUME 11.8 fL (9.2-13.0); MONOCYTES 10.9 %; MONOCYTES ABSOLUTE 1.03 10/3/uL (0.21-1.20); NEUTROPHILS 76.7 %; NEUTROPHILS ABSOLUTE 7.21 10/3/uL (2.02-8.40); PLATELET COUNT 125 10/3/uL (150-400); RBC DISTRIBUTION WIDTH 13.9 % (12.0-16.0); RED CELL COUNT 3.23 10/6/uL (4.7-6.1); RETICULOCYTE COUNT 1.4 % (0.5-2.5); RETICULOCYTE COUNT ABSOLUTE 45.2 10/3/uL (20.2-119.8); WHITE BLOOD CELLS 9.4 10/3/uL (4.5-10.5)
[2016-06-28 06:07] LABS: MANUAL DIFF NO %
[2016-06-28 06:47] LABS: INTERNATIONAL NORMAL RATI 1.6 UNITS (-); PROTIME (NOT ORD) 18.8 SEC (12.0-14.5)
[2016-06-28 06:55] LABS: % IRON SAT 14 % (20-50); ALBUMIN 2.6 G/DL (3.5-5.0); BUN (BLOOD UREA NITROGEN) 61 MG/DL (6-23); CALCIUM, SERUM 7.9 MG/DL (8.5-10.4); CHLORIDE, SERUM 98 MMOL/L (96-112); CO2 (CARBON DIOXIDE) 22 MMOL/L (24-34); CREATININE 6.18 MG/DL (0.70-1.30); FERRITIN 346 NG/ML (26-388); GFR AFRICAN AMERICAN 9 ML/MIN (>=60); GFR NON AFRICAN AMERICAN 8 ML/MIN (>=60); GLUCOSE, SERUM 134 MG/DL (60-99); IRON BINDING CAPACITY 224 MCG/DL (250-450); IRON, SERUM 32 MCG/DL (35-150); PHOSPHORUS, SERUM 7.4 MG/DL (2.5-4.5); POTASSIUM, SERUM 4.6 MMOL/L (3.5-5.3); SODIUM, SERUM 136 MMOL/L (135-148)
[2016-06-29 07:02] LABS: BASOPHILS 0.3 %; BASOPHILS ABSOLUTE 0.03 10/3/uL (0.0-0.16); EOSINOPHILS 3.4 %; HEMATOCRIT 30.3 % (40.0-51.0); HEMOGLOBIN 10.1 g/dL (13.6-17.8); IMMATURE GRANULOCYTES 0.3 %; IMMATURE GRANULOCYTES ABSOLUTE 0.03 10/3/uL (0.0-0.11); LYMPHOCYTES 24.7 %; LYMPHOCYTES ABSOLUTE 2.16 10/3/uL (0.67-4.30); MEAN CORPUS HGB CONC 33.3 g/dL (32.0-36.0); MEAN CORPUSCULAR HEMOGLOB 32.9 pg (26.0-34.0); MEAN CORPUSCULAR VOLUME 98.7 fL (80-100); MEAN PLATELET VOLUME 11.7 fL (9.2-13.0); MONOCYTES 13.1 %; MONOCYTES ABSOLUTE 1.15 10/3/uL (0.21-1.20); NEUTROPHILS 58.2 %; NEUTROPHILS ABSOLUTE 5.08 10/3/uL (2.02-8.40); PLATELET COUNT 143 10/3/uL (150-400); RBC DISTRIBUTION WIDTH 14.6 % (12.0-16.0); RED CELL COUNT 3.07 10/6/uL (4.7-6.1); WHITE BLOOD CELLS 8.8 10/3/uL (4.5-10.5)
[2016-06-29 07:07] LABS: MANUAL DIFF NO %
[2016-06-29 07:15] LABS: ALBUMIN 2.4 G/DL (3.5-5.0); BUN (BLOOD UREA NITROGEN) 43 MG/DL (6-23); CALCIUM, SERUM 7.8 MG/DL (8.5-10.4); CHLORIDE, SERUM 102 MMOL/L (96-112); CO2 (CARBON DIOXIDE) 26 MMOL/L (24-34); GFR AFRICAN AMERICAN 11 ML/MIN (>=60); GFR NON AFRICAN AMERICAN 9 ML/MIN (>=60); GLUCOSE, SERUM 91 MG/DL (60-99); PHOSPHORUS, SERUM 5.7 MG/DL (2.5-4.5); POTASSIUM, SERUM 3.9 MMOL/L (3.5-5.3); SODIUM, SERUM 141 MMOL/L (135-148)
[2016-06-29 07:24] LABS: INTERNATIONAL NORMAL RATI 1.7 UNITS (-); PROTIME (NOT ORD) 19.7 SEC (12.0-14.5)
[2016-06-30 06:41] LABS: BASOPHILS 0.5 %; BASOPHILS ABSOLUTE 0.04 10/3/uL (0.0-0.16); HEMATOCRIT 29.5 % (40.0-51.0); HEMOGLOBIN 9.9 g/dL (13.6-17.8); IMMATURE GRANULOCYTES 0.3 %; IMMATURE GRANULOCYTES ABSOLUTE 0.02 10/3/uL (0.0-0.11); LYMPHOCYTES 24.7 %; LYMPHOCYTES ABSOLUTE 1.97 10/3/uL (0.67-4.30); MEAN CORPUS HGB CONC 33.6 g/dL (32.0-36.0); MEAN CORPUSCULAR VOLUME 98.3 fL (80-100); MEAN PLATELET VOLUME 11.8 fL (9.2-13.0); MONOCYTES 13.7 %; MONOCYTES ABSOLUTE 1.09 10/3/uL (0.21-1.20); NEUTROPHILS 55.8 %; NEUTROPHILS ABSOLUTE 4.46 10/3/uL (2.02-8.40); PLATELET COUNT 136 10/3/uL (150-400); RBC DISTRIBUTION WIDTH 14.5 % (12.0-16.0)
[2016-06-30 06:42] LABS: MANUAL DIFF NO %
[2016-06-30 06:52] LABS: INTERNATIONAL NORMAL RATI 2.1 UNITS (-)
[2016-06-30 06:56] LABS: PROTIME (NOT ORD) 23.3 SEC (12.0-14.5)
[2016-06-30 07:02] LABS: ALBUMIN 2.4 G/DL (3.5-5.0); CALCIUM, SERUM 7.8 MG/DL (8.5-10.4); CHLORIDE, SERUM 97 MMOL/L (96-112); CO2 (CARBON DIOXIDE) 25 MMOL/L (24-34); GFR AFRICAN AMERICAN 8 ML/MIN (>=60); GFR NON AFRICAN AMERICAN 7 ML/MIN (>=60); GLUCOSE, SERUM 84 MG/DL (60-99); PHOSPHORUS, SERUM 5.9 MG/DL (2.5-4.5); POTASSIUM, SERUM 4.1 MMOL/L (3.5-5.3); SODIUM, SERUM 140 MMOL/L (135-148)
[2016-06-30 07:12] LABS: BUN (BLOOD UREA NITROGEN) 55 MG/DL (6-23); CREATININE 6.61 MG/DL (0.70-1.30)
[2016-06-30 12:27] LABS: BASOPHILS 0.6 %; BASOPHILS ABSOLUTE 0.03 10/3/uL (0.0-0.16); EOSINOPHILS 3.9 %; IMMATURE GRANULOCYTES 0.2 %; IMMATURE GRANULOCYTES ABSOLUTE 0.01 10/3/uL (0.0-0.11); LYMPHOCYTES 20.5 %; LYMPHOCYTES ABSOLUTE 1.06 10/3/uL (0.67-4.30); MEAN CORPUS HGB CONC 33.4 g/dL (32.0-36.0); MEAN CORPUSCULAR HEMOGLOB 32.5 pg (26.0-34.0); MEAN CORPUSCULAR VOLUME 97.1 fL (80-100); MEAN PLATELET VOLUME 11.8 fL (9.2-13.0); MONOCYTES 14.1 %; MONOCYTES ABSOLUTE 0.73 10/3/uL (0.21-1.20); NEUTROPHILS 60.7 %; NEUTROPHILS ABSOLUTE 3.15 10/3/uL (2.02-8.40); PLATELET COUNT 103 10/3/uL (150-400); RBC DISTRIBUTION WIDTH 14.4 % (12.0-16.0); WHITE BLOOD CELLS 5.2 10/3/uL (4.5-10.5)
[2016-06-30 12:28] LABS: HEMATOCRIT 37.1 % (40.0-51.0); HEMOGLOBIN 12.4 g/dL (13.6-17.8); MANUAL DIFF NO %; RED CELL COUNT 3.82 10/6/uL (4.7-6.1)
[2016-06-30 12:44] LABS: ALBUMIN 2.3 G/DL (3.5-5.0); BUN (BLOOD UREA NITROGEN) 57 MG/DL (6-23); CALCIUM, SERUM 7.6 MG/DL (8.5-10.4); CHLORIDE, SERUM 98 MMOL/L (96-112); CO2 (CARBON DIOXIDE) 24 MMOL/L (24-34); CREATININE 6.85 MG/DL (0.70-1.30); GFR AFRICAN AMERICAN 8 ML/MIN (>=60); GFR NON AFRICAN AMERICAN 7 ML/MIN (>=60); PHOSPHORUS, SERUM 5.8 MG/DL (2.5-4.5); POTASSIUM, SERUM 4.2 MMOL/L (3.5-5.3); SODIUM, SERUM 140 MMOL/L (135-148)
[2016-06-30 12:47] LABS: GLUCOSE, SERUM 101 MG/DL (60-99)
[2016-07-01 05:08] LABS: INTERNATIONAL NORMAL RATI 1.9 UNITS (-); PROTIME (NOT ORD) 21.3 SEC (12.0-14.5)
[2016-07-02 08:43] LABS: BASOPHILS 0.2 %; BASOPHILS ABSOLUTE 0.02 10/3/uL (0.0-0.16); EOSINOPHILS 3.9 %; EOSINOPHILS ABSOLUTE 0.34 10/3/uL (0.0-0.53); IMMATURE GRANULOCYTES 0.7 %; IMMATURE GRANULOCYTES ABSOLUTE 0.06 10/3/uL (0.0-0.11); LYMPHOCYTES ABSOLUTE 2.12 10/3/uL (0.67-4.30); MEAN CORPUS HGB CONC 33.8 g/dL (32.0-36.0); MEAN CORPUSCULAR HEMOGLOB 33.7 pg (26.0-34.0); MEAN CORPUSCULAR VOLUME 99.7 fL (80-100); MEAN PLATELET VOLUME 11.7 fL (9.2-13.0); MONOCYTES 9.6 %; MONOCYTES ABSOLUTE 0.85 10/3/uL (0.21-1.20); NEUTROPHILS 61.6 %; NEUTROPHILS ABSOLUTE 5.43 10/3/uL (2.02-8.40); RBC DISTRIBUTION WIDTH 14.5 % (12.0-16.0)
[2016-07-02 08:44] LABS: HEMATOCRIT 28.7 % (40.0-51.0); HEMOGLOBIN 9.7 g/dL (13.6-17.8); MANUAL DIFF NO %; PLATELET COUNT 143 10/3/uL (150-400); RED CELL COUNT 2.88 10/6/uL (4.7-6.1); WHITE BLOOD CELLS 8.8 10/3/uL (4.5-10.5)
[2016-07-02 08:50] LABS: INTERNATIONAL NORMAL RATI 1.7 UNITS (-); PROTIME (NOT ORD) 19.4 SEC (12.0-14.5)
[2016-07-02 08:55] LABS: ALBUMIN 2.5 G/DL (3.5-5.0); BUN (BLOOD UREA NITROGEN) 41 MG/DL (6-23); CALCIUM, SERUM 8.4 MG/DL (8.5-10.4); CHLORIDE, SERUM 103 MMOL/L (96-112); CO2 (CARBON DIOXIDE) 24 MMOL/L (24-34); GFR AFRICAN AMERICAN 9 ML/MIN (>=60); GFR NON AFRICAN AMERICAN 8 ML/MIN (>=60); GLUCOSE, SERUM 91 MG/DL (60-99); PHOSPHORUS, SERUM 4.5 MG/DL (2.5-4.5); POTASSIUM, SERUM 4.5 MMOL/L (3.5-5.3); SODIUM, SERUM 142 MMOL/L (135-148)
[2016-07-03 05:19] LABS: INTERNATIONAL NORMAL RATI 1.6 UNITS (-)
[2016-07-03 08:18] LABS: BASOPHILS 0.3 %; BASOPHILS ABSOLUTE 0.02 10/3/uL (0.0-0.16); EOSINOPHILS ABSOLUTE 0.31 10/3/uL (0.0-0.53); HEMATOCRIT 27.2 % (40.0-51.0); HEMOGLOBIN 9.1 g/dL (13.6-17.8); IMMATURE GRANULOCYTES 0.5 %; IMMATURE GRANULOCYTES ABSOLUTE 0.04 10/3/uL (0.0-0.11); LYMPHOCYTES 19.1 %; LYMPHOCYTES ABSOLUTE 1.47 10/3/uL (0.67-4.30); MANUAL DIFF NO %; MEAN CORPUS HGB CONC 33.5 g/dL (32.0-36.0); MEAN CORPUSCULAR HEMOGLOB 33.2 pg (26.0-34.0); MEAN CORPUSCULAR VOLUME 99.3 fL (80-100); MEAN PLATELET VOLUME 11.7 fL (9.2-13.0); MONOCYTES 12.1 %; MONOCYTES ABSOLUTE 0.93 10/3/uL (0.21-1.20); NEUTROPHILS ABSOLUTE 4.92 10/3/uL (2.02-8.40); PLATELET COUNT 144 10/3/uL (150-400); RBC DISTRIBUTION WIDTH 14.3 % (12.0-16.0); RED CELL COUNT 2.74 10/6/uL (4.7-6.1); WHITE BLOOD CELLS 7.7 10/3/uL (4.5-10.5)
[2016-07-03 08:30] LABS: ALBUMIN 2.4 G/DL (3.5-5.0); CALCIUM, SERUM 8.2 MG/DL (8.5-10.4); CHLORIDE, SERUM 105 MMOL/L (96-112); CO2 (CARBON DIOXIDE) 26 MMOL/L (24-34); CREATININE 6.68 MG/DL (0.70-1.30); GFR AFRICAN AMERICAN 8 ML/MIN (>=60); GFR NON AFRICAN AMERICAN 7 ML/MIN (>=60); GLUCOSE, SERUM 84 MG/DL (60-99); POTASSIUM, SERUM 4.8 MMOL/L (3.5-5.3); SODIUM, SERUM 141 MMOL/L (135-148)
[2016-07-03 08:31] LABS: BUN (BLOOD UREA NITROGEN) 48 MG/DL (6-23); PHOSPHORUS, SERUM 5.6 MG/DL (2.5-4.5)
== END 2016-07-03 18:26 | DRG 469 ==
LOC: 1SO 13:19
PROVIDERS: Hospitalist; Internal Medicine; Internal Medicine Nephrology; Nurse Practitioner; Registered Nurse; Specialist; Surgery
PROC: 05HM33Z Insertion of Infusion Device into Right Internal Jugular Vein, Percutaneous Approach (ICD-10-PCS; 2016-06-26)
PROC: B543ZZA Ultrasonography of Right Jugular Veins, Guidance (ICD-10-PCS; 2016-06-26)
PROC: 5A1D60Z (ICD-10-PCS; 2016-06-26)
PROC: 0SR90JA Replacement of Right Hip Joint with Synthetic Substitute, Uncemented, Open Approach (ICD-10-PCS; principal; 2016-06-26 07:15)
PROC: 031C09F Bypass Left Radial Artery to Lower Arm Vein with Autologous Venous Tissue, Open Approach (ICD-10-PCS; 2016-07-02)
DX: S72.111A Displaced fracture of greater trochanter of right femur, initial encounter for closed fracture (principal); N18.6 End stage renal disease; I13.2 Hypertensive heart and chronic kidney disease with heart failure and with stage 5 chronic kidney disease, or end stage renal disease; N17.9 Acute kidney failure, unspecified; E87.2 Acidosis; I50.22 Chronic systolic (congestive) heart failure; I48.2 Chronic atrial fibrillation; E87.5 Hyperkalemia; E78.5 Hyperlipidemia, unspecified; D63.1 Anemia in chronic kidney disease; G47.33 Obstructive sleep apnea (adult) (pediatric); W18.30XA Fall on same level, unspecified, initial encounter; Z86.718 Personal history of other venous thrombosis and embolism; Z86.711 Personal history of pulmonary embolism; Z79.01 Long term (current) use of anticoagulants; Z90.5 Acquired absence of kidney
CPT/HCPCS: 36415; 36558; 71010; 72170; 73502-RT; 76775; 77001; 80048; 80069; 80074; 80162; 81001; 82550; 82607; 82728; 83540; 83550; 83735; 83880; 84100; 85025; 85045; 85610; 86850; 86900; 86901; 87389; 87641; 88305; 88311; 93005; 97110-GP; 97116-GP; 97162-GP; 97166-GO; 97530-GP; 97535-GO; A9270-GY; C1713; C1750; C1776; G0257; G0365; G8978-CL-GP; G8979-CK-GP; J0690; J1170; J1885; J1940; J2250; J2274; J2370; J2405; J2710; J2795; J3010